=== PATIENT | male | born 1980 | race Caucasian/White ===

== ENCOUNTER 2018-09-11 16:20 | Emergency (ER) | payer MEDICAID ==
[~2018-09-11] VITALS: Ht 188 cm; Wt 80.5 kg
[2018-09-11 16:36] VITALS: BP 119/81
[2018-09-11] MEDS ORDERED: ONDA4TAB9 SL (18:20)
[2018-09-11] MEDS ORDERED: DIPH25CA83 PO (18:20)
== END 2018-09-11 18:37 | disposition home or self-care (01) ==
LOC: ER 16:22
DX: F11.10 Opioid abuse, uncomplicated (principal); K59.00 Constipation, unspecified; Z02.89 Encounter for other administrative examinations; J45.909 Unspecified asthma, uncomplicated; F17.200 Nicotine dependence, unspecified, uncomplicated; Z79.899 Other long term (current) drug therapy
CPT/HCPCS: 99283

== ENCOUNTER 2018-09-22 17:36 | Emergency (ER) | payer MEDICAID ==
[~2018-09-22] VITALS: Ht 188 cm; Wt 65.0 kg
[~2018-09-22 17:36] MED LIST: DIPH25CA83 PO
[2018-09-22] MEDS ORDERED: LIDOcaine 1.5% w/epinephrine 1:200,000 5ml ampul IJ ONE (18:10)
[2018-09-22] MEDS ORDERED: LIDOcaine 1% w/epiNEPHrine 1:200,000 30ml vial IJ ONE (18:25)
[2018-09-22] MEDS ORDERED: sulfamethoxazole/trimethoprim DS (800/160mg) tablet PO ONE (18:40)
[2018-09-22] MEDS ORDERED: cephalexin 250mg capsule PO ONE (18:40)
[2018-09-22] MEDS ORDERED: SULF1TAB49 PO (18:42)
[2018-09-22] MEDS ORDERED: CEPH-572 PO (18:42)
[2018-09-22] MEDS ORDERED: IBUP-1985 PO (18:44)
[2018-09-22 18:49] VITALS: BP 141/89
== END 2018-09-22 18:56 | disposition home or self-care (01) ==
LOC: ER 17:37
DX: L02.412 Cutaneous abscess of left axilla (principal); J45.909 Unspecified asthma, uncomplicated; F11.90 Opioid use, unspecified, uncomplicated; Z79.2 Long term (current) use of antibiotics; Z79.899 Other long term (current) drug therapy
CPT/HCPCS: 10060; 99283; J3490

== ENCOUNTER 2018-09-24 08:42 | Emergency (ER) | payer MEDICAID ==
[~2018-09-24] VITALS: Ht 185.4 cm; Wt 65.0 kg
[~2018-09-24 08:42] MED LIST changes: +CEPH-572 PO; +IBUP-1985 PO; +SULF1TAB49 PO
[2018-09-24 08:56] VITALS: BP 128/89
== END 2018-09-24 09:35 | disposition home or self-care (01) ==
LOC: ER 08:42
DX: L02.414 Cutaneous abscess of left upper limb (principal); F11.10 Opioid abuse, uncomplicated; J45.909 Unspecified asthma, uncomplicated; Z79.899 Other long term (current) drug therapy
CPT/HCPCS: 99281